=== PATIENT | male | born 1985 | race Hispanic/Latino ===

== ENCOUNTER 2019-12-22 20:42 | Emergency (ER) | payer SELFPAY ==
[2019-12-22 21:05] LABS: Absolute Lymphocytes (CBC) 3.2 K/uL (0.7-4.9); Basophils % 0.7 % (0-1.3); Hematocrit 49.2 % (39.6-49.0); Lymphocytes % 27.1 % (15.3-44.8); MPV 10.2 fL (7.6-11.3); RBC Red Blood Cell Count 5.63 M/uL (4.33-5.43)
[2019-12-22 21:24] LABS: ALT/SGPT 59 U/L (12-78); AST/SGOT 19 U/L (15-37); Albumin 4.1 g/dL (3.4-5.0); Alkaline Phosphatase 134 U/L (45-117); BUN Blood Urea Nitrogen 15 mg/dL (7-18); Bicarbonate 28 mmol/L (21-32); Bilirubin Direct 0.1 mg/dL (0-0.2); Bilirubin Total 0.6 mg/dL (0.2-1.0); Glucose Level 140 mg/dL (74-106); Magnesium 2.3 mg/dL (1.8-2.4); NT PRO-BNP 15 pg/mL (<125); Potassium 3.5 mmol/L (3.5-5.1); Protein, Total 8.4 g/dL (6.4-8.2); Sodium Level 140 mmol/L (136-145); Troponin (Emerg Dept Use Only) < 0.02 ng/mL (0.0-0.045)
[2019-12-22] MEDS ORDERED: ONDANSETRON 4 MG/2 ML VIAL ONE (21:34)
[2019-12-22] MEDS ORDERED: FENTANYL CITR 100 MCG/2 ML ONE (21:34)
[2019-12-22 21:35] LABS: Protime INR 1.16
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
[2019-12-23 00:56] VITALS: TEMP 97.8
[2019-12-23 01:01] VITALS: BP 111/65; O2SAT 94
--- NOTE | 2019-12-23 08:45 | RAD REPORT ---
EXAM DESCRIPTION: RAD - Chest Single View - 12/22/2019 9:07 pm CLINICAL HISTORY: CHEST PAIN Chest pain. COMPARISON: No comparisons FINDINGS: Portable technique limits examination quality. The lungs are grossly clear. The heart is normal in size. No displaced fractures. IMPRESSION: No acute intrathoracic process suspected.
--- NOTE | 2019-12-23 10:41 | RAD REPORT ---
EXAM DESCRIPTION: Chest For Pe Angio CLINICAL HISTORY: The patient is 34 years old and is Male; Chest pain;SOB TECHNIQUE: Axial computed tomographic angiography images of the chest with intravenous contrast. T his CT exam was performed using one or more of the following dose reduction techniques: automated e xposure control, adjustment of the mA and/or kV according to patient size, and/or use of iterative re construction technique. MIP reconstructed images were created and reviewed. Oblique reformatted images were created and reviewed. DLP: 500 mGy*cm COMPARISON: None. FINDINGS: PULMONARY ARTERIES: Unremarkable. No pulmonary embolism. AORTA: No acute findings. No thoracic aortic aneurysm. LUNGS: Calcified right lower lobe granuloma. No focal consolidation. Lingular atelectasis. PLEURAL SPACE: Unremarkable. No significant effusion. No pneumothorax. HEART: Unremarkable. No cardiomegaly. No significant pericardial effusion. No evidence of RV dysfunction. BONES/JOINTS: No acute fracture. No dislocation. SOFT TISSUES: Mild bilateral gynecomastia. LYMPH NODES: Unremarkable. No enlarged lymph nodes. IMPRESSION: No pulmonary embolism. No acute intrathoracic abnormality. Electronically signed by: Shane Trinidad DO 12/22/2019 11:35 PM SENIOR BUSINESS ARCHITECT Due to temporary technical issues with the PACS/Fluency reporting system, reports are being signed by the in house radiologist without review as a courtesy to ensure prompt reporting. The interpreting r adiologist is fully responsible for the content of the report.
== END 2019-12-23 00:35 | disposition home or self-care (01) ==
LOC: ER 20:42
DX: S20.211A Contusion of right front wall of thorax, initial encounter (principal); W50.0XXA Accidental hit or strike by another person, initial encounter; Y93.9 Activity, unspecified; Y92.9 Unspecified place or not applicable; F17.210 Nicotine dependence, cigarettes, uncomplicated
CPT/HCPCS: 36415; 71045; 71275; 80048; 80076; 83735; 83880; 84484; 85025; 85610; 93005; 96374; 96375; 99284; J2405; J3010; Q9967

== ENCOUNTER 2020-07-05 04:15 | Emergency (ER) | payer SELFPAY ==
[2020-07-05] MEDS ORDERED: IBUPROFEN 400 MG TAB ONE ×2 (05:04→05:19)
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
[2020-07-05] MEDS ORDERED: HYDROCODONE/APAP 5/325 MG TAB ONE (06:03)
[2020-07-05 06:19] VITALS: O2SAT 99
[2020-07-05 06:22] VITALS: BP 129/95
--- NOTE | 2020-07-05 09:28 | RAD REPORT ---
EXAM DESCRIPTION: RAD - Hand Left 3 View - 07/05/2020 5:02 am CLINICAL HISTORY: traumaleft hand pain swelling in abrasions COMPARISON: March 2013 left hand exam FINDINGS: Oblique fracture is present through the proximal most shaft fifth metacarpal left hand silvestre roximately 1 millimeter of distraction is present. No angulation deformity. There is a convex bowing of the fifth metacarpal shaft which may reflect sequela of prior trauma. 2014 study shows fracture through the shaft of the fourth metacarpal. Bony remodeling is evident. The re is a lucent line present at the proximal aspect of the fracture remodel that is suspicious for new nondisplaced, nonangulated fracture. Dorsal convex bowing of the fourth metacarpal represents remode ling from the remote fracture. There is metallic BB or rounded foreign body in the soft tissues in th e palmar soft tissues near the fourth metacarpal. No other acute bone or joint finding. No new foreign body. Soft tissue edema changes are present. IMPRESSION: Fracture through the proximal shaft fifth metacarpal with no significant distraction or angulation deformity. Suspected new nondisplaced, nonangulated fracture proximal shaft fourth metacarpal near the site of p rior fracture seen in 2013.
== END 2020-07-05 06:10 | disposition home or self-care (01) ==
LOC: ER 04:15
PROC: 2W3DX1Z Immobilization of Left Lower Arm using Splint (ICD-10-PCS; principal; 2020-07-05)
DX: S62.307A Unspecified fracture of fifth metacarpal bone, left hand, initial encounter for closed fracture (principal); W22.8XXA Striking against or struck by other objects, initial encounter; Y92.89 Other specified places as the place of occurrence of the external cause; F17.210 Nicotine dependence, cigarettes, uncomplicated
CPT/HCPCS: 99285

== ENCOUNTER 2020-10-10 07:15 | Emergency (ER) | payer SELFPAY ==
[2020-10-10 08:41] LABS: Absolute Lymphocytes (CBC) 2.4 K/uL (0.7-4.9); Basophils % 0.8 % (0-1.3); Hematocrit 49.1 % (39.6-49.0); Lymphocytes % 33.7 % (15.3-44.8); MPV 9.2 fL (7.6-11.3); RBC Red Blood Cell Count 5.33 M/uL (4.33-5.43)
[2020-10-10 09:07] LABS: ALT/SGPT 50 U/L (12-78); AST/SGOT 25 U/L (15-37); Albumin 3.9 g/dL (3.4-5.0); Alkaline Phosphatase 122 U/L (45-117); BUN Blood Urea Nitrogen 11 mg/dL (7-18); Bicarbonate 23 mmol/L (21-32); Bilirubin Direct < 0.1 mg/dL (0-0.2); Bilirubin Total 0.4 mg/dL (0.2-1.0); Glucose Level 79 mg/dL (74-106); Potassium 3.6 mmol/L (3.5-5.1); Protein, Total 8.2 g/dL (6.4-8.2); Sodium Level 138 mmol/L (136-145)
[2020-10-10 09:13] LABS: Protime INR 0.96
[2020-10-10 12:33] LABS: Urine Blood Negative (Negative); Urine Glucose Negative (Negative); Urine Protein Negative (Negative); Urine Specific Gravity 1.015 (1.005-1.030); Urine pH 5.5 (5.0-7.0)
[2020-10-10 13:53] LABS: Barbiturates NEGATIVE (NEGATIVE); Benzodiazepines NEGATIVE (NEGATIVE); Cocaine POSITIVE (NEGATIVE); METHAMPHETAM NEGATIVE (NEGATIVE); Methadone NEGATIVE (NEGATIVE); Opiates NEGATIVE (NEGATIVE); Phencyclidine NEGATIVE (NEGATIVE); THC Cannibis NEGATIVE (NEGATIVE)
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
[2020-10-10 15:09] VITALS: O2SAT 97
[2020-10-10 15:11] VITALS: BP 120/80
--- NOTE | 2020-10-11 10:42 | EKG ---
Test Date: 2020-10-10 Test Time: 08:17:14 Student Counselor: JANEE MEASUREMENT RESULTS: Intervals: Rate: 61 OH: 146 QRSD: 86 QT: 420 QTc: 422 [place]: P: 35 OH: 146 QRS: 85 T: 53 INTERPRETIVE STATEMENTS: Normal sinus rhythm Normal ECG Compared to ECG 12/22/2019 21:53:03 Right-axis deviation no longer present Electronically Signed On 10-11-20 10:39:58 CDT by Marky Decker
== END 2020-10-10 14:44 | disposition home or self-care (01) ==
LOC: ER 07:15
DX: F43.0 Acute stress reaction (principal); F10.10 Alcohol abuse, uncomplicated; F14.10 Cocaine abuse, uncomplicated; F17.210 Nicotine dependence, cigarettes, uncomplicated
CPT/HCPCS: 36415; 80048; 80076; 80307; 80320; 80329; 81003; 85025; 85610; 85730; 93005; 99284

== ENCOUNTER 2020-12-20 23:15 | Emergency (ER) | payer SELFPAY ==
[2020-12-21] MEDS ORDERED: HYDROCODONE/APAP 7.5/325 MG TAB ONE (00:53)
[2020-12-21] MEDS ORDERED: IBUPROFEN 400 MG TAB ONE (00:53)
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
[2020-12-21] MEDS ORDERED: HYDROMORPHONE HCL 1 MG/ML INJ ONE (03:49)
[2020-12-21 04:15] VITALS: BP 161/102; TEMP 98; O2SAT 98
--- NOTE | 2020-12-21 08:30 | RAD REPORT ---
EXAM DESCRIPTION: RAD - Knee Right 3 View - 12/21/2020 12:14 am CLINICAL HISTORY: [facility] COMPARISON: No comparisons FINDINGS: Lateral tibial plateau fracture is present. There is mild depression of the fracture fragm ents, estimated at 4 mm. No other fracture changes identifiable. .Joint effusion is seen without lipo ma hemarthrosis identifiable. No joint space narrowing. No foreign body or other soft tissue abnormal ity. IMPRESSION: Lateral tibial plateau fracture as detailed. If warranted for surgical versus conservative management assessment, follow-up CT imaging could be pe rformed.
--- NOTE | 2020-12-21 12:49 | RAD REPORT ---
EXAM DESCRIPTION: CT - Knee Right Wo Cont - 12/21/2020 6:05 am COMPARISON: None. CLINICAL HISTORY: [facility] MA[facility] pain/swelling TECHNIQUE: Multiple axial images of the right knee without IV contrast. Multiplanar reformats. Autom ated exposure control was utilized on this examination as a dose lowering technique. FINDINGS: Bones and joint spaces: There is a comminuted fracture of the lateral right tibial plateau . There is medial depression. Moderate hemarthrosis is present. Muscles and tendons: Normal. Soft tissues: There is hematoma in the subcutaneous tissues. IMPRESSION: Comminuted lateral right tibial plateau fracture, Schatzker type II. Moderate hemarthros is. Electronically signed by: Quinn Licona MD 12/21/2020 2:28 AM CDT Due to temporary technical issues with the PACS/Fluency reporting system, reports are being signed by the in house radiologists without review as a courtesy to insure prompt reporting. The interpreting radiologist is fully responsible for the content of the report.
== END 2020-12-21 04:10 | disposition home or self-care (01) ==
LOC: ER 23:15
DX: S82.251A Displaced comminuted fracture of shaft of right tibia, initial encounter for closed fracture (principal); X50.1XXA Overexertion from prolonged static or awkward postures, initial encounter; Y93.41 Activity, dancing
CPT/HCPCS: 73700; 96372; 99284; J1170